=== PATIENT | male | born 1980 | race Caucasian/White ===

== ENCOUNTER 2017-09-30 13:40 | Emergency (ER) | payer BC ==
[~2017-09-30] VITALS: Ht 182.9 cm; Wt 93.0 kg
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
--- NOTE | 2017-09-30 14:54 | RAD ---
Indication: Swelling at the level of the first metatarsal. Technique: 3 views of the left foot are submitted for review. No comparison is available. Findings: There is no fracture or dislocation. There is no gross bone destruction. There are minimal degenerative changes at the first metatarsal-phalangeal joint. There is soft tissue swelling in the region of the first metatarsal-phalangeal joint. Impression: Negative for fracture. Soft tissue swelling.
[2017-09-30 15:18] VITALS: BP 128/80
== END 2017-09-30 15:16 | disposition home or self-care (01) ==
LOC: ER 13:40
DX: S90.32XA Contusion of left foot, initial encounter (principal); S09.90XA Unspecified injury of head, initial encounter; I10 Essential (primary) hypertension; W22.8XXA Striking against or struck by other objects, initial encounter; Y93.16 Activity, rowing, canoeing, kayaking, rafting and tubing; Y99.8 Other external cause status; Y92.89 Other specified places as the place of occurrence of the external cause
CPT/HCPCS: 73630; 99284